=== PATIENT | female | born 1960 | race Caucasian/White ===

== ENCOUNTER 2023-05-10 10:47 | Outpatient (OUT) | payer OTHER, SELFPAY ==
--- NOTE | 2023-05-10 11:01 | XR_ITS ---
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 TECHNIQUE: 5 views cervical spine FINDINGS: The dens and lateral masses are symmetrically aligned. Vertebral body heights and alignment are preserved. Mild right osseous foraminal narrowing at C2-C3 and C3-C4. Diffuse facet arthrosis. The lung apices are clear. Prevertebral soft tissues are within normal limits. Degenerative disc disease is multifocal and most severe at C5-C6 and C6-C7. XR/XR cervical spine 5V IMPRESSION: Mild multilevel degenerative disc disease most severe at C5-C6 and C6-C7. Electronically authenticated by: THOMAS BLAIR Date: 05/10/2023 21:31
== END 2023-05-10 10:48 | disposition home or self-care (01) ==
LOC: RAD 10:54
PROVIDERS: PCP Nurse Practitioner Family; Visit Provider Physician Assistant
DX: M47.812 Spondylosis without myelopathy or radiculopathy, cervical region (principal); M50.323 Other cervical disc degeneration at C6-C7 level; M50.322 Other cervical disc degeneration at C5-C6 level
CPT/HCPCS: 72050

== ENCOUNTER 2023-05-28 09:55 | Outpatient (OUT) | payer OTHER, SELFPAY ==
--- NOTE | 2023-05-28 10:10 | MR_ITS ---
The [address] [address] Patient Name: DEANNA SIGALA MRN: [id number] date: 1960 Sex: F Assigned Patient Location: MRI Current Patient Location: MRI Accession/Order Number: [id number] Exam Date: 05/28/2023 10:15 Report Date: 05/28/2023 11:03 At the request of: CHERYL MONTOYA Procedure: MR cervical spine wo con MR cervical spine wo con, 05/28/2023 10:15 AM EDT INDICATION: Neurogenic Pain M79.2, Degenerative Disc Disease Cervical COMPARISON: This study was compared to the prior x-ray dated 05/10/2023 TECHNIQUE: Multiplanar, multisequential MRI images of cervical spine were obtained with without contrast. FINDINGS: There is normal physiologic cervical lordosis. The vertebral heights are relatively preserved. The cervicomedullary junction is unremarkable. No definite signal abnormality within the spinal cord is noted. There are mild disc osteophyte complex associated with uncovertebral joint arthrosis from C3 to T1. Mild right and moderate left neuroforaminal narrowing and no canal stenosis at the level of C2-C3 is noted. At the level of C3-C4, there is mild left neuroforaminal narrowing and no canal stenosis. At the level of C4-C5, there is moderate bilateral neuroforaminal narrowing and mild canal stenosis. At the level of C5-C6, there is moderate right and mild left neuroforaminal narrowing and moderate canal stenosis. At the level of C6-C7, there is moderate bilateral neuroforaminal narrowing and moderate canal stenosis. Level of C7-T1 is unremarkable. No definite muscular or ligamentous injury is noted. Tiny nodules within the right lobe of thyroid measuring up to 4 mm are noted. MR/MR cervical spine wo con IMPRESSION: Moderate degenerative changes of the cervical spine in particular at C5-C6 and C6-C7. Electronically authenticated by: CONSTANTIN STONE Date: 05/28/2023 11:03
== END 2023-05-28 09:56 | disposition home or self-care (01) ==
LOC: MRI 09:57
PROVIDERS: PCP Nurse Practitioner Family; Visit Provider Physician Assistant
DX: M79.2 Neuralgia and neuritis, unspecified (principal); M50.30 Other cervical disc degeneration, unspecified cervical region; M47.12 Other spondylosis with myelopathy, cervical region; M47.812 Spondylosis without myelopathy or radiculopathy, cervical region
CPT/HCPCS: 72141

== ENCOUNTER 2024-12-30 09:58 | Outpatient (OUT) | payer SELFPAY ==
--- OUTSIDE RECORDS SUMMARY | 2024-12-30 10:03 | XMS_ITS | Encounter Summary ---
Author Organization [facility] Address [address] [place] [address] Care Team Providers Care Security Administrator Name Role Phone Clarissa Mendez MD Primary Care Provider [phone] Encounter Details Date Type Department Care Team (Late st Contact Info) Description 09/18/2023 Abstract [facility] [address] [facility] 110 [place] [address] Clarissa Mendez MD 112 [facility] [address] [place] [address] Social History Tobacco Use Types Packs/Day Years Used Date Smoking Tobacco: Former Cigarettes Smokeless Tobacco: Never Comments:Last smoked : > 10 years Alcohol Use Standard Drinks/Week Comments Not Currently 0 (1 standard drink = 0.6 oz pur e alcohol) PHQ-2 Answer Date Recorded Patient Health Questionnaire-2 Score 0 04/16/2023 Comments Unknown Sex and Gender Information Value Date Recorded Sex Assigned at Not on file Legal Sex Female 7:12 PM EDT Gender Identity Not on file Sexual Orientation Not on file documented as of this encounter Plan of Treatment Not on file documented as of this encounter Visit Diagnoses Not on filedocumented in this encounter Care Teams Security Administrator Relationship Specialty Start Date End Date Clarissa Mendez MD 112 [facility] [address] [place] [address] PCP - General Family Medicine 12/18/22 documented as of this encounter
--- OUTSIDE RECORDS SUMMARY | 2024-12-30 10:03 | XMS_ITS | Clinical Summary ---
Author Organization [facility] Address [address] [place] [address] Care Team Providers Care Forming Machine Upkeep Mechanic Helper Name Role Phone Razia Soria MD Unavailable Unavailable Bonny Thomas CNP Unavailable [phone] Randi Chow Unavailable [phone] Bonny Thomas CNP Primary Care Provider [phone] Allergies Active Allergy Reactions Criticality Noted Date Comments Codeine Vomiting 08/25/2013 Medications lisinopril (ZESTRIL, PRINIVIL) 20 mg tablet Take 20 mg by mouth once daily. 07/25/2015 Active tiZANidine (ZANAFLEX) 4 mg tablet daily at bedtime. 05/27/2015 Active CPAP daily at bedtime. Active metoprolol tartrate, short acting, (LOPRESSOR) 25 mg tablet Take 1 tablet by mouth twice daily. 60 tablet 1 09/26/2015 Active venlafaxine ER (EFFEXOR XR) 150 mg 24 hr capsule Take 300 mg by mouth twice daily. 05/24/2020 Active amitriptyline (ELAVIL) 75 mg tablet Take 150 mg by mouth. 03/14/2020 Active CPAP/BIPAP/OTHE R Type .CPAPSetting s into a note to see current settings/sup plies/DME information. 1 Each 09/02/2024 2 Active CPAP/BIPAP/OTHE R Type .CPAPSetting s into a note to see current settings/sup plies/DME information. 1 Each 09/02/2024 2 Active Active Problems Problem Noted Date Diagnosed Date Essential hypertension 09/26/2015 Dyslipidemia 09/26/2015 Encounters Date Type Department Care Team Description 10/05/2024 Telephone Sleep Disorders [address] [place] [id number] Susy Harp APRN.CNP Patient Question; Manager Environmental Health And Safety - Other from Last 3 Months Family History Medical History Relation Comments Seizures Father COPD Mother Diabetes Mother Relation Status Comments Father Mother Alive Social History Tobacco Use Types Packs/Day Years Used Date Smoking Tobacco: Former Cigarettes 0 08/12/1984 - 08/12/1999 Smokeless Tobacco: Never Tobacco Cessation:Counseling Given: Not Answered Alcohol Use Standard Drinks/Week Comments Yes 0 (1 standard drink = 0.6 oz pur e alcohol) beer a few times a week PHQ-2 Answer Date Recorded PHQ-2 score 4 09/01/2024 Area Deprivation Index Answer Date Warren rded National Score (1-100), lower number is lower ri sk 73 09/02/2024 State Score (1-10), lower number is lower risk 6 09/02/2024 Data from: https://www.neighborhoodatlas.medicine.[facility]/. Last address used for calculation [address] [place] [address] [address] 09/02/2024 Comments No Sex and Gender Information Value Date Recorded Sex Assigned at Not on file Legal Sex Female 8:18 AM EST Gender Identity Not on file Sexual Orientation Not on file Last Filed Vital Signs Vital Sign Reading Time Taken Comments Blood Pressure 133/58 09/02/2024 12:31 PM EST Pulse 83 09/02/2024 12:31 PM EST Temperature 36.8 C (98.3 F) 09/26/2015 11:15 AM EST Respiratory Rate 16 09/26/2015 11:15 AM EST Oxygen Saturation 100% 09/02/2024 12:31 PM EST Inhaled Oxygen Concentration - - Weight 110.2 kg (243 lb) 06/29/2020 11:18 AM EST Height 170.2 cm (5' 7 ) 06/29/2020 11:18 AM EST Body Mass Index 38.06 06/29/2020 11:18 AM EST Plan of Treatment Health Maintenance Due Date Last Done Comments Annual PCP Team Chronic Dise ase Visit 1980 Anxiety Screening 1980 BP Controlled (<130/80) 1980 Depression Screening 1980 HIV Screening 1980 Hepatitis C Screening 1980 Cervical Cancer Screening 1983 CT Colonography 2007 Cologuard (FIT-DNA) 2007 Fecal Occult Blood 2007 Lipid Screening 2007 Sigmoidoscopy 2007 Pneumococcal Vaccine: 50+ (1 of 1 - PCV) 2012 Shingrix Vaccine (1 of 2) 2012 Colonoscopy 01/28/2016 01/27/2015 Colorectal Cancer Screening 01/28/2016 Mammogram Screening 01/11/2023 01/11/2022, 01/11/2022, 08/22/2018, Additional history exists Covid-19 Vaccine (2 - 2023-2 5 season) 2024 07/31/2021 Influenza Vaccine (Season Ended) 2025 05/17/2020, 07/31/2016, 05/12/2015 Diabetes Screening 05/07/2026 05/07/2023, 0 03/06/2022, 06/29/2020, Additional history exists DTaP,Tdap,Td Vaccine (2 - Td or Tdap) 03/24/2030 03/24/2020 RSV Vaccine (1 - 1-dose 75+ series) 2037 Medical Devices Implanted Type Area Inhalation Therapy Aides Teacher Device Identifier Shelf Expiration Date Model / Serial / Lot Anchr Sut 4.75mm Bcs Svllok - [id number] Implanted:Qty : 4 on 09/02/2013 at [facility] Suture [place] Right: Bone - Shoulder [employer] 05/11/2015 [id number] / / [id number] Description:swivelock suture anchor Procedures Procedure Name Priority Date/Time Associated Diagnosis Comments HEMOGLOBIN A1C Routine 06/29/2020 12:28 PM EST Disturbance of skin sensation from Last 3 Months or Most Recently Relevant to Health Maintenance Results * (ABNORMAL) HGB A1C (06/29/2020 12:28 PM EST) Hemoglobin A1C 5.8(H) 4.3 - 5.6 % 06/29/2020 6:19 PM EST [facility] Comment: [place] Diabetes [employer] guidelines indicate that patients with HgbA1c in the range 5.7-6.4% are at increased risk for development of diabetes, and intervention by lifestyle modification may be beneficial. HgbA1c greater or equal to 6.5% is considered diagnostic of diabetes. Estimated Average Glucose 120 mg/dL 06/29/2020 6:19 PM EST [facility] Comment: eAG: (Estimated average glucose) is a calculated value from HgbA1c and is patient registration representative of the average blood glucose level in the last 2-3 month period. Blood WHOLE BLOOD SPECIMEN / Unknown 06/29/2020 12:28 PM EST 06/29/2020 12:30 PM EST us Leticia Rogel MD LABORATORY Final Result [facility] [address] [place] [address] [facility] [address] [place] [address] from Last 3 Months or Most Recently Relevant to Health Maintenance Insurance [employer] PPO Care Teams Forming Machine Upkeep Mechanic Helper Relationship Specialty Start Date End Date Bonny Thomas CNP [address] [place] [address] PCP - General Family Medicine 06/29/20 Razia Soria MD Primary Staff Physician Cardiology 10/28/18 Bonny Thomas, [employer] [address] [facility] 150 [place], [place] [id number] Referring Family Medicine 05/30/20 Randi Chow PA [address] [place] [address] [address] [place], [place] [id number] Family Medicine 06/27/20
--- OUTSIDE RECORDS SUMMARY | 2024-12-30 10:04 | XMS_ITS | Encounter Summary ---
Author Organization [facility] Address [address] [place] [address] Care Team Providers Care Molder Foam Rubber Name Role Phone Clarissa Mendez MD Primary Care Provider [phone] Encounter Details Date Type Department Care Team (Late st Contact Info) Description 12/29/2024 Telephone [facility] [address] [place] [address] [place] [id number] Clarissa Mendez MD [address] [place] [address] [place] [address] Social History Tobacco Use Types Packs/Day Years [...] on file documented as of this encounter Miscellaneous Notes * Telephone Encounter - Desirae Kumar - 12/29/2024 10:37 AM EDT Patient [facility] ref[facility] [place] and [facility] * Telephone Encounter - Emma Grullon LPN - 12/29/2024 10:34 AM EDT We do not have her old sleep study report she can try to call the facility she had it done and see if they may have access to it in storage but not sure they would Right knee xray ordered advised pt to cb and let us know where to send the order * Telephone Encounter - Elisabeth Churchill - 12/29/2024 10:10 AM EDT Dulce Maria called needing some information. She stated she had a sleep study done about 10 years ago andneeded those results. She also stated that she has been having pain in her Rt Knee and has had trouble with it locking upand she can't move it. She is asking if it would be possible for her to get her Rt Knee xrayed to see what is going on? documented in this encounter Plan of Treatment Scheduled Orders Name Type Priority Associated Diagnoses Orde r Schedule XR knee 3 views right Imaging Routine Acute pain of right knee Expected: 12/29/2024, Expires: 12/29/2025 documented as of this encounter Visit Diagnoses Diagnosis Acute pain of right knee Other muscle spasm documented in this encounter Care Teams Molder Foam Rubber Relationship Specialty Start Date End Date Clarissa Mendez MD 112 [facility] 110 [place] [address] PCP - General Family Medicine 12/18/22 documented as of this encounter
--- OUTSIDE RECORDS SUMMARY | 2024-12-30 10:04 | XMS_ITS | Encounter Summary ---
Author Organization [facility] Address [address] [place] [address] Care Team Providers Care Mangle Tender Name Role Phone Clarissa Mendez MD Primary Care Provider [phone] Encounter Details Date Type Department Care Team (Late st Contact Info) Description 05/13/2023 Orders Only [facility] [address] [place] [address] [place] [address] Randi Chow PA [address] [place] [address] [place] [address] Social History Tobacco Use Types Packs/Day Years [...] on file documented as of this encounter Procedures Procedure Name Priority Date/Time Associated Diagnosis Comments XR CERVICAL SPINE COMPLETE 4-5 VIEWS Routine 05/10/2023 10:05 AM EDT documented in this encounter Results * XR cervical spine complete 4 to 5 views (05/10/2023 10:05 AM EDT) Anatomical Region Laterality Modality Spine, C-spine Radiographic Maria Eugenia ging Randi DUGGAN IMG XR PROCEDURES Final Result documented in this encounter Visit Diagnoses Not on filedocumented in this encounter Care Teams Mangle Tender Relationship Specialty Start Date End Date Clarissa Mendez MD 112 [facility] 110 [place] [address] PCP - General Family Medicine 12/18/22 documented as of this encounter
--- OUTSIDE RECORDS SUMMARY | 2024-12-30 10:04 | XMS_ITS | Encounter Summary ---
Author Organization [facility] Address [address] [place] [address] [place] [address] Care Team Providers Care Information Technology Program Manager Name Role Phone Clarissa Mendez MD Primary Care Provider [phone] Encounter Details Date Type Department Care Team (Late st Contact Info) Description 05/10/2023 Clinisync Result Encounter [facility] External Department Unsolicited Cheryl Chow, PA [address] [place] [address] [place] [address] Social History Tobacco Use Types Packs/Day Years [...] Date/Time Associated Diagnosis Comments XR CERVICAL SPINE 5V 05/10/2023 9:31 PM EDT documented in this encounter Results * XR CERVICAL SPINE 5V (05/10/2023 9:31 PM EDT) Anatomical Region Laterality Modality Other 05/10/2023 9:31 PM EDT Narrative 05/10/2023 9:31 PM EDT The [address] [address] XRay Report Signed Patient: DEANNA GOMES MR#: [id number] : 1960 Acct:[id number] Age/Sex: 63 / F ADM Date: 05/10/23 Loc: RAD Attending Dr: CHERYL CHOW Ordering Physician: CHERYL CHOW Date of Service: 05/10/23 Procedure(s): XR cervical spine 5V Accession Number(s): [id number] cc: CHERYL CHOW ; LIZA [place] [address] Patient Name: DEANNA GOMES MRN: [id number] date: 1960 Sex: F Assigned Patient Location: [facility] Current Patient Location: [facility] Accession/Order Number: [id number] Exam Date: 05/10/2023 11:05 Report Date: 05/10/2023 21:31 At the request of: CHERYL CHOW Procedure: XR cervical spine 5V EXAM: XR cervical spine 5V HISTORY: Spondylosis Of Cervical Region M47.812 COMPARISON: None. TECHNIQUE: 5 views cervical spine FINDINGS: The dens and lateral masses are symmetrically aligned. Vertebral body heights and alignment are preserved. Mild right osseous foraminal narrowing at C2-C3 and C3-C4. Diffuse facet arthrosis. The lung apices are clear. Prevertebral soft tissues are within normal limits. Degenerative disc disease is multifocal and most severe at C5-C6 and C6-C7. XR/XR cervical spine 5V IMPRESSION: Mild multilevel degenerative disc disease most severe at C5-C6 and C6-C7. Electronically authenticated by: THOMAS RAMIREZ Date: 05/10/2023 21:31 Dictated By: Thomas Ramirez M.D. Signed By: 05/10/232132 DD/ 30 TD/TT: Tank Builder: Procedure Note Radiology, Radiologist, - 05/10/2023 [place] [address] XRay Report Signed Patient: DEANNA GOMES GMR#: [id number] : 1960cct:[id number] Age/Sex: 63 / FADM Date: 05/10/23 Loc: RAD Attending Dr: CHERYL CHOW Ordering Physician: CHERYL CHOW Date of Service: 05/10/23 Procedure(s): XR cervical spine 5V Accession Number(s): [id number] cc: CHERYL CHOW ; LIZA CLAYTON [address] [address] Patient Name: DEANNA GOMES MRN: [id number] date: 1960 Sex: F Assigned Patient Location: RAD Current Patient Location: [facility] Accession/Order Number: [id number] Exam Date: 05/10/2023 11:05 Report Date: 05/10/2023 21:31 At the request of: CHERYL CHOW Procedure: XR cervical spine 5V EXAM: XR cervical spine 5V HISTORY: Spondylosis Of Cervical Region M47.812 COMPARISON: None. TECHNIQUE: 5 views cervical spine FINDINGS: The dens and lateral masses are symmetrically aligned. Vertebral body heights and alignment are preserved. Mild right osseous foraminalnarrowing at C2-C3 and C3-C4. Diffuse facet arthrosis. The lung apices are clear. Prevertebral soft tissues are within normal limits. Degenerative discdisease is multifocal and most severe at C5-C6 and C6-C7. XR/XR cervical spine 5V IMPRESSION: Mild multilevel degenerative disc disease most severe at C5-C6 and C6-C7. Electronically authenticated by: THOMAS RAMIREZ Date: 05/10/2023 21:31 Dictated By: Thomas Ramirez M.D. Signed By:05/10/232132 DD/ 30 TD/TT: Tank Builder: us Cheryl [facility] Final Result documented in this encounter Visit Diagnoses Not on filedocumented in this encounter Care Teams Information Technology Program Manager Relationship Specialty Start Date End Date Clarissa Mendez MD [address] [facility] 110 [place] [address] PCP - General Family Medicine 12/18/22 documented as of this encounter
--- OUTSIDE RECORDS SUMMARY | 2024-12-30 10:04 | XMS_ITS | Encounter Summary ---
Author Organization [facility] Address [address] [place] [address] Care Team Providers Care Water Treatment Plant Mechanic Name Role Phone Clarissa Mendez MD Primary Care Provider [phone] Encounter Details Date Type Department Care Team (Late st Contact Info) Description 05/29/2023 Orders Only [facility] [address] [place] [address] [place] [address] A, Unknown Practice [address] [place], [place] [phone] Social History Tobacco Use Types Packs/Day Years [...] Procedure Name Priority Date/Time Associated Diagnosis Comments MRI CERVICAL SPINE W CONT Routine 05/28/2023 9:24 AM EDT documented in this encounter Results * MRI CERVICAL SPINE W CONT (05/28/2023 9:24 AM EDT) Anatomical Region Laterality Modality Radiographic Maria Eugenia ging us Unknown Practice A IMG XR PROCEDURES Final Resul t documented in this encounter Visit Diagnoses Not on filedocumented in this encounter Care Teams Water Treatment Plant Mechanic Relationship Specialty Start Date End Date Clarissa Mendez MD 112 [facility] 110 [place] [address] PCP - General Family Medicine 12/18/22 documented as of this encounter
--- OUTSIDE RECORDS SUMMARY | 2024-12-30 10:04 | XMS_ITS | Encounter Summary ---
Author Organization [facility] Address [address] [place] [address] Care Team Providers Care Batch Analyst Name Role Phone Clarissa Mendez MD Primary Care Provider [phone] Encounter Details Date Type Department Care Team (Late st Contact Info) Description 05/28/2023 Clinisync Result Encounter [facility] External Department Unsolicited Cheryl Chow, PA [address] [place] [address] [place], [place] [id number] Social History Tobacco Use Types Packs/Day Years [...] Procedure Name Priority Date/Time Associated Diagnosis Comments MR CERVICAL SPINE WO CONTRAST 05/28/2023 11:03 AM EDT documented in this encounter Results * MR cervical spine wo contrast (05/28/2023 11:03 AM EDT) Anatomical Region Laterality Modality Spine, C-spine Magnetic Resonan ce 05/28/2023 11:0 3 AM EDT Narrative 05/28/2023 11:03 AM EDT The [address] [address] Magnetic Resonance Report Signed Patient: DEANNA GOMES MR#: [id number] : 1960 Acct:[id number] Age/Sex: 63 / F ADM Date: 05/28/23 Loc: MRI Attending Dr: CHERYL CHOW Ordering Physician: CHERYL CHOW Date of Service: 05/28/23 Procedure(s): MR cervical spine wo con Accession Number(s): [id number] cc: CHERYL CHOW ; LIZA CLAYTON [facility] [address] [place], [place] [address] Patient Name: DEANNA GOMES MRN: [id number] date: 1960 Sex: F Assigned Patient Location: MRI Current Patient Location: MRI Accession/Order Number: [id number] Exam Date: 05/28/2023 10:15 Report Date: 05/28/2023 11:03 At the request of: CHERYL CHOW Procedure: MR cervical spine wo con MR cervical spine wo con, 05/28/2023 10:15 AM EDT INDICATION: Neurogenic Pain M79.2, Degenerative Disc Disease Cervical COMPARISON: This study was compared to the prior x-ray dated 05/10/2023 TECHNIQUE: Multiplanar, multisequential MRI images of cervical spine were obtained with without contrast. FINDINGS: There is normal physiologic cervical lordosis. The vertebral heights are relatively preserved. The cervicomedullary junction is unremarkable. No definite signal abnormality within the spinal cord is noted. There are mild disc osteophyte complex associated with uncovertebral joint arthrosis from C3 to T1. Mild right and moderate left neuroforaminal narrowing and no canal stenosis at the level of C2-C3 is noted. At the level of C3-C4, there is mild left neuroforaminal narrowing and no canal stenosis. At the level of C4-C5, there is moderate bilateral neuroforaminal narrowing and mild canal stenosis. At the level of C5-C6, there is moderate right and mild left neuroforaminal narrowing and moderate canal stenosis. At the level of C6-C7, there is moderate bilateral neuroforaminal narrowing and moderate canal stenosis. Level of C7-T1 is unremarkable. No definite muscular or ligamentous injury is noted. Tiny nodules within the right lobe of thyroid measuring up to 4 mm are noted. MR/MR cervical spine wo con IMPRESSION: Moderate degenerative changes of the cervical spine in particular at C5-C6 and C6-C7. Electronically authenticated by: GERALD MUNOZ Date: 05/28/2023 11:03 Dictated By: Gerald Munoz M.D. Signed By: 05/28/231105 DD/ 02 TD/TT: Machine Scallop Cutter: Procedure Note Radiology, Radiologist, MD - 06/07/2023 [place] [address] Magnetic Resonance Report Signed Patient: DEANNA GOMES GMR#: [id number] : 1960cct:[id number] Age/Sex: 63 / FADM Date: 05/28/23 Loc: MRI Attending Dr: CHERYL CHOW Ordering Physician: CHERYL CHOW Date of Service: 05/28/23 Procedure(s): MR cervical spine wo con Accession Number(s): [id number] cc: CHERYL CHOW ; LIZA CLAYTON The [place] [id number] Patient Name: DEANNA GOMES MRN: [id number] date: 1960 Sex: F Assigned Patient Location: MRI Current Patient Location: MRI Accession/Order Number: [id number] Exam Date: 05/28/2023 10:15 Report Date: 05/28/2023 11:03 At the request of: CHERYL CHOW Procedure: MR cervical spine wo con MR cervical spine wo con, 05/28/2023 10:15 AM EDT INDICATION: Neurogenic Pain M79.2, Degenerative Disc Disease Cervical COMPARISON: This study was compared to the prior x-ray dated 05/10/2023 TECHNIQUE: Multiplanar, multisequential MRI images of cervical spine were obtained with without contrast. FINDINGS: There is normal physiologic cervical lordosis. The vertebral heights are relatively preserved. The cervicomedullary junction is unremarkable. No definite signal abnormality within the spinal cord is noted. There are mild disc osteophyte complex associated with uncovertebral joint arthrosis from C3 to T1. Mild right and moderate left neuroforaminal narrowing and no canalstenosis at the level of C2-C3 is noted. At the level of C3-C4, there is mild left neuroforaminal narrowing and no canal stenosis. At the level of C4-C5, there is moderate bilateral neuroforaminalnarrowing and mild canal stenosis. At the level of C5-C6, there is moderate right and mild leftneuroforaminal narrowing and moderate canal stenosis. At the level of C6-C7, there is moderate bilateral neuroforaminalnarrowing and moderate canal stenosis. Level of C7-T1 is unremarkable. No definite muscular or ligamentous injury is noted. Tiny nodules withinthe right lobe of thyroid measuring up to 4 mm are noted. MR/MR cervical spine wo con IMPRESSION: Moderate degenerative changes of the cervical spine in particular at C5-C6and C6-C7. Electronically authenticated by: GERALD MUNOZ Date: 05/28/2023 11:03 Dictated By: Gerald Munoz M.D. Signed By:05/28/23 1106 DD/ 1103 TD/TT: Machine Scallop Cutter: us Cheryl DUGGAN IMG MRI PROCEDURES Final Resul t documented in this encounter Visit Diagnoses Not on filedocumented in this encounter Care Teams Batch Analyst Relationship Specialty Start Date End Date Clarissa Mendez MD [address] [place] [id number] PCP - General Family Medicine 12/18/22 documented as of this encounter
--- OUTSIDE RECORDS SUMMARY | 2024-12-30 10:04 | XMS_ITS | Encounter Summary ---
Author Organization [facility] Address [address] [place] [address] Care Team Providers Care Foreign Law Consultant Name Role Phone Clarissa Mendez MD Primary Care Provider [phone] Encounter Details Date Type Department Care Team (Late st Contact Info) Description 09/03/2024 Abstract [facility] [address] [facility] 110 [place] [address] Clarissa Mendez MD 112 [facility] 110 [place] [address] Social History Tobacco Use Types Packs/Day Years [...] on filedocumented in this encounter Care Teams Foreign Law Consultant Relationship Specialty Start Date End Date Clarissa Mendez MD 112 [facility] 110 [place] [address] PCP - General Family Medicine 12/18/22 documented as of this encounter
--- OUTSIDE RECORDS SUMMARY | 2024-12-30 10:04 | XMS_ITS | Encounter Summary ---
Author Organization [facility] Address [address] [place] [facility] [address] Care Team Providers Care Multi Craft Maintenance Technician Name Role Phone Clarissa Mendez MD Primary Care Provider [phone] Encounter Details Date Type Department Care Team (Late st Contact Info) Description 06/22/2024 Abstract [facility] [address] [facility] 110 [place] [address] Clarissa Mendez MD 112 [facility] 110 [place] [address] Social History Tobacco Use Types Packs/Day Years [...] on filedocumented in this encounter Care Teams Multi Craft Maintenance Technician Relationship Specialty Start Date End Date Clarissa Mendez MD 112 [facility] 110 [place] [address] PCP - General Family Medicine 12/18/22 documented as of this encounter
--- OUTSIDE RECORDS SUMMARY | 2024-12-30 10:04 | XMS_ITS | Encounter Summary ---
Author Organization [facility] Address [address] [place] [address] Care Team Providers Care Music Rehabilitation Therapist Name Role Phone Clarissa Mendez MD Primary Care Provider [phone] Encounter Details Date Type Department Care Team (Late st Contact Info) Description 05/28/2023 Orders Only [facility] [address] [place] [address] [place] [address] A, Unknown Practice [address] [place], [place] [phone] Social History Tobacco Use Types Packs/Day Years [...] MRI CERVICAL SPINE W CONT Routine 05/28/2023 11:46 AM EDT documented in this encounter Results * MRI CERVICAL SPINE W CONT (05/28/2023 11:46 AM EDT) Anatomical Region Laterality Modality Radiographic Maria Eugenia ging us Unknown Practice A IMG XR PROCEDURES Final Resul t documented in this encounter Visit Diagnoses Not on filedocumented in this encounter Care Teams Music Rehabilitation Therapist Relationship Specialty Start Date End Date Clarissa Mendez MD 112 [facility] 110 [place] [address] PCP - General Family Medicine 12/18/22 documented as of this encounter
--- OUTSIDE RECORDS SUMMARY | 2024-12-30 10:04 | XMS_ITS | Encounter Summary ---
Author Organization [facility] Address [address] [place] [address] Care Team Providers Care Peer Tutor Name Role Phone Clarissa Mendez MD Primary Care Provider [phone] Encounter Details Date Type Department Care Team (Late st Contact Info) Description 04/09/2024 Orders Only [facility] [address] [place] [address] [place] [phone] Heather Dozier LPN [address] [place] [address] Spondylosis of cervical region without myelopathy or radiculopathy; Neurogenic pain; Degenerative disc disease, cervical; Spondylosis, cervical, with myelopathy Social History Tobacco Use Types Packs/Day Years [...] as of this encounter Visit Diagnoses Diagnosis Spondylosis of cervical region without myelopathy or radiculopathy Neurogenic pain Degenerative disc disease, cervical Spondylosis, cervical, with myelopathy Cervical spondylosis with myelopathy documented in this encounter Care Teams Peer Tutor Relationship Specialty Start Date End Date Clarissa Mendez MD [address] [place] [address] [place] [address] PCP - General Family Medicine 12/18/22 documented as of this encounter
--- OUTSIDE RECORDS SUMMARY | 2024-12-30 10:04 | XMS_ITS | Encounter Summary ---
Author Organization [facility] Address [address] [place] [address] Care Team Providers Care Demurrage Worker Name Role Phone Clarissa Mendez MD Primary Care Provider [phone] Encounter Details Date Type Department Care Team (Late st Contact Info) Description 09/18/2023 Abstract [facility] [address] [facility] 110 [place] [address] Clarissa Mendez MD 112 [facility] 110 [place] [address] Social History Tobacco Use Types Packs/Day Years [...] on filedocumented in this encounter Care Teams Demurrage Worker Relationship Specialty Start Date End Date Clarissa Mendez MD 112 [facility] 110 [place] [address] PCP - General Family Medicine 12/18/22 documented as of this encounter
--- OUTSIDE RECORDS SUMMARY | 2024-12-30 10:04 | XMS_ITS | Encounter Summary ---
Author Organization [facility] Address [address] [place] [address] Care Team Providers Care Topper Press Operator Automatic Name Role Phone Clarissa Mendez MD Primary Care Provider [phone] Encounter Details Date Type Department Care Team (Late st Contact Info) Description 07/02/2023 Abstract [facility] [address] [facility] 110 [place] [address] Clarissa Mendez MD 112 [facility] 110 [place] [address] Social History Tobacco Use Types Packs/Day Years [...] on filedocumented in this encounter Care Teams Topper Press Operator Automatic Relationship Specialty Start Date End Date Clarissa Mendez MD 112 [facility] 110 [place] [address] PCP - General Family Medicine 12/18/22 documented as of this encounter
--- OUTSIDE RECORDS SUMMARY | 2024-12-30 10:04 | XMS_ITS | Encounter Summary ---
Author Organization [facility] Address [address] [facility] [place] [address] Care Team Providers Care Supervisor Customer Records Division Name Role Phone Clarissa Mendez MD Primary Care Provider [phone] Encounter Details Date Type Department Care Team (Late st Contact Info) Description 07/23/2023 Abstract [facility] [address] [facility] 110 [place] [address] Clarissa Mendez MD 112 [facility] 110 [place] [address] Social History Tobacco Use Types Packs/Day Years [...] on filedocumented in this encounter Care Teams Supervisor Customer Records Division Relationship Specialty Start Date End Date Clarissa Mendez MD 112 [facility] 110 [place] [address] PCP - General Family Medicine 12/18/22 documented as of this encounter
--- OUTSIDE RECORDS SUMMARY | 2024-12-30 10:04 | XMS_ITS | Clinical Summary ---
Author Organization [facility] Address [id number] [address] [place] [address] Care Team Providers Care Black Ash Worker Name Role Phone Karsten Juárez MD Primary Care Provider [phone] Allergies Active Allergy Reactions Criticality Noted Date Comments Codeine GI Disturbance 02/07/2017 Pt and state that she is not allergic to codeine, she had an upset stomach one time a long time ago. She took percocet in the past year from knee scope and had no problems. Medications * This document contains information received from the source organization and may not represent a complete record from that organization. celecoxib (CeleBREX) 100 mg capsule Take 1 capsule (100 mg total) by mouth in the morning and 1 capsule (100 mg total) before bedtime. Active omeprazole (PriLOSEC) 20 mg capsule Take 1 capsule (20 mg total) by mouth in the morning and 1 capsule (20 mg total) before bedtime. Active atorvastatin (LIPITOR) 10 mg tablet 08/20/2017 Active lisinopril (PRINIVIL,ZESTR IL) 20 mg tablet 08/20/2017 Active metoprolol tartrate (LOPRESSOR) 25 mg tablet 08/20/2017 Active levothyroxine (SYNTHROID, LEVOTHROID) 25 MCG tablet Take 1 tablet (25 mcg total) by mouth every morning before breakfast. Take on empty stomach 2 04/17/2018 Active tiZANidine (ZANAFLEX) 4 mg tablet Take 1 tablet (4 mg total) by mouth once daily at bedtime. Active amitriptyline (ELAVIL) 75 mg tablet Take 2 tablets (150 mg total) by mouth nightly. 180 tablet 3 11/20/2024 Active venlafaxine XR (EFFEXOR-XR) 150 mg 24 hr capsuleIndicati ons:Major depressive disorder, recurrent episode, moderate (CMS-HCC) Take 2 capsules (300 mg total) by mouth in the morning. 180 capsule 3 11/20/2024 Active Active Problems Problem Noted Date Diagnosed Date Major depressive disorder, recurrent episode, mo derate 04/22/2017 Generalized anxiety disorder 04/22/2017 Insomnia 04/22/2017 Encounters * This document contains information received from the source organization and may not represent a complete record from that organization. Date Type Department Care Team Description 11/20/2024 Travel from Last 3 Months Family History Medical History Relation Name Comments COPD Mother Relation Name Status Comments Father Mother Social History Tobacco Use Types Packs/Day Years Used Date Smoking Tobacco: Former Alcohol Use Standard Drinks/Week Comments Yes 6 (1 standard drink = 0.6 oz pur e alcohol) Childcare Answer Date Recorded Childcare Unknown 01/21/2019 Employment Answer Date Recorded Employment Unknown 01/21/2019 Hunger Screening Answer Date Recorded Within the past 12 months we worried whether our food would run out before we got money to buy more. Never True 11/20/2024 Within the past 12 months th e food we bought just didn't last and we didn't have money to get more. Never True 11/20/2024 Purpose - Life Answer Date Recorded Purpose and direction in life Unknown Comments No Sex and Gender Information Value Date Recorded Sex Assigned at Not on file Legal Sex Female 12:12 PM EDT Gender Identity Not on file Sexual Orientation Not on file Last Filed Vital Signs Vital Sign Reading Time Taken Comments Blood Pressure 136/70 11/20/2024 10:24 AM EDT Pulse 69 11/20/2024 10:24 AM EDT Temperature 36.5 C (97.7 F) 02/19/2017 12:10 PM EDT Respiratory Rate 20 02/19/2017 1:00 PM EDT Oxygen Saturation 97% 02/19/2017 1:45 PM EDT Inhaled Oxygen Concentration - - Weight 108.4 kg (239 lb) 11/20/2024 10:24 AM EDT Height 170.2 cm (5' 7 ) 02/07/2017 10:45 AM EDT Body Mass Index 37.43 02/07/2017 10:45 AM EDT Plan of Treatment Health Maintenance Due Date Last Done Comments Depression Screening 1974 Pap Smear 1983 Zoster (Shingles) Vaccine (1 of 2) 2012 COVID-19 Vaccine (2 - 2023-2 5 season) 2024 07/31/2021 Influenza Vaccine 04/12/2025 05/17/2020, , 05/12/2015 Adult BMI Screening 11/20/2025 11/20/2024 Tobacco Screening 11/20/2025 11/20/2024 DTaP,Tdap and Td Vaccines (2 - Td or Tdap) 03/24/2030 03/24/2020 Medical Devices Not on file Insurance ANTH Care Teams Black Ash Worker Relationship Specialty Start Date End Date Karsten Juárez MD [address] [facility] 110 [place] [address] PCP - General Internal Medicine 02/19/17
--- OUTSIDE RECORDS SUMMARY | 2024-12-30 10:04 | XMS_ITS | Encounter Summary ---
Author Organization [facility] Address [address] [facility] [place] [address] Care Team Providers Care Architectural Intern Name Role Phone Clarissa Mendez MD Primary Care Provider [phone] Encounter Details Date Type Department Care Team (Late st Contact Info) Description 09/02/2024 Abstract [facility] [address] [facility] 110 [place] [address] Clarissa Mendez MD 112 [facility] 110 [place] [address] Social History Tobacco Use Types Packs/Day Years [...] on filedocumented in this encounter Care Teams Architectural Intern Relationship Specialty Start Date End Date Clarissa Mendez MD 112 [facility] 110 [place] [address] PCP - General Family Medicine 12/18/22 documented as of this encounter
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
--- NOTE | 2024-12-30 10:10 | XR_ITS ---
The [address] [address] Patient Name: DEANNA SIGALA MRN: [id number] date: 1960 Sex: F Assigned Patient Location: [facility] Current Patient Location: [facility] Accession/Order Number: [id number] Exam Date: 12/30/2024 10:32 Report Date: 12/30/2024 10:35 At the request of: DEACON KYLE Procedure: XR knee RT 3V RIGHT KNEE - 3 views COMPARISON: None CLINICAL DATA: Acute right knee pain for the past 3-4 weeks posteriorly. No injury. AP, lateral and internal oblique views were obtained. No acute fracture or dislocation is noted. There is narrowing at the patellofemoral joint space. There is tricompartment marginal spurring. There are small loose bodies projecting at the tibiofemoral joint space. There is a small amount of joint fluid. No other soft tissue abnormalities are seen. XR/XR knee RT 3V IMPRESSION: DEGENERATIVE CHANGES. NO ACUTE BONY FINDINGS. Impression dictated by: Randi Esquivel M.D. 12/30/2024 10:35 AM Dictation Location: [place] [address] Electronically authenticated by: [id number] Y Date: 12/30/2024 10:35
== END 2024-12-30 09:59 | disposition home or self-care (01) ==
PROVIDERS: PCP Nurse Practitioner Family; Visit Provider Family Medicine
DX: M25.561 Pain in right knee (principal); M17.11 Unilateral primary osteoarthritis, right knee
CPT/HCPCS: 73562